=== PATIENT | female | born 1995 | race Two or more races ===

== ENCOUNTER → 2025-08-22 08:43 | Outpatient (CLI) | payer OTHER | END | disposition home or self-care (01) | LOC: PRENATAL 08:43 | PROVIDERS: ATTEND Obstetrics & Gynecology Maternal & Fetal Medicine | DX: O36.80X0 Pregnancy with inconclusive fetal viability, not applicable or unspecified (principal); O26.891 Other specified pregnancy related conditions, first trimester; O24.311 Unspecified pre-existing diabetes mellitus in pregnancy, first trimester; Z3A.09 9 weeks gestation of pregnancy ==

== ENCOUNTER 2025-09-18 10:52 | Outpatient (CLI) | payer OTHER | END 2025-09-18 10:53 | disposition home or self-care (01) | LOC: PRENATAL 10:52 | PROVIDERS: ATTEND Obstetrics & Gynecology Maternal & Fetal Medicine | DX: O36.80X0 Pregnancy with inconclusive fetal viability, not applicable or unspecified (principal); Z36.82 Encounter for antenatal screening for nuchal translucency; Z14.8 Genetic carrier of other disease; O24.311 Unspecified pre-existing diabetes mellitus in pregnancy, first trimester; Z3A.12 12 weeks gestation of pregnancy ==